=== PATIENT | female | born 1965 | race African-American/Black ===

== ENCOUNTER 2020-10-20 23:45 | Emergency (ER) | payer MEDICAID ==
[~2020-10-20] VITALS: Ht 167.6 cm; Wt 61.0 kg
[2020-10-20 23:45] VITALS: BP 136/86
[~2020-10-20 23:45] MED LIST: ATOR20TA MT; CARV6.2548 MT; FURO-152 MT
== END 2020-10-21 00:10 | disposition home or self-care (01) ==
LOC: ER 23:45
DX: R10.9 Unspecified abdominal pain (principal); Z53.29 Procedure and treatment not carried out because of patient's decision for other reasons; E11.9 Type 2 diabetes mellitus without complications; I11.0 Hypertensive heart disease with heart failure; I50.9 Heart failure, unspecified; J45.909 Unspecified asthma, uncomplicated
CPT/HCPCS: 99283